=== PATIENT | male | born 1960 | race Caucasian/White ===

== ENCOUNTER 2020-03-01 15:02 | Emergency (ER) | payer MEDICAID ==
[~2020-03-01] VITALS: Ht 170.2 cm; Wt 98.0 kg
--- NOTE | 2020-03-01 16:15 | NUR ---
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
--- NOTE | 2020-03-01 16:27 | NUR ---
PT COMPLAING OF SOB AND BILATERAL LEG SWELLING. PT REPORTS INCREASED SWELLING SINCE RECENT DISCHARGE FROM [facility]. PT RESTING IN [facility], NO NEEDS AT THIS TIME. CARDIAC MONITORING AND CONT PULSE OX IN PLACE. NAD NOTED, WILL CONTINUE TO MONITOR.
--- NOTE | 2020-03-01 17:02 | NUR ---
PT RESTING ON GURNEY, NO NEEDS AT THIS TIME PER PT. 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 WILL CONTINUE TO MONITOR.
[2020-03-01 18:12] LABS: BASOPHILS % (AUTO) 1 % (0-1); EOSINOPHILS % (AUTO) 1 % (1-7); LYMPHOCYTES % (AUTO) 18 % (22-44); MEAN CORPUSCULAR HEMOGLOBIN 22.1 pg (27.5-34.5); MEAN CORPUSCULAR HGB CONC 30.1 g/dL (33.2-36.2); MONOCYTES % (AUTO) 8 % (2-9); NEUTROPHILS % (AUTO) 71 % (42-75); PLATELET COUNT 293 x10^3/uL (130-400); RED BLOOD COUNT 3.96 x10^6/uL (4.38-5.82); RED CELL DISTRIBUTION WIDTH 22.8 % (9.4-14.8)
[2020-03-01 18:48] LABS: MICROSCOPIC INDICATED
[2020-03-01 18:52] LABS: MD MORPH REVIEW ONLY
--- NOTE | 2020-03-01 18:52 | NUR ---
PT RESTING ON GURGIULIA, NO NEEDS AT THIS TIME. US AT BS.
[2020-03-01 18:55] LABS: ANISOCYTOSIS 1+; HYPOCHROMIA 1+; MICROCYTOSIS 1+; OVALOCYTES 1+; POLYCHROMASIA 1+
[2020-03-01 18:56] LABS: <PLATELET ESTIMATE> ADEQUATE; <PLT MORPHOLOGY> NORMAL PLT MORPH; TEAR DROPS 1+
[2020-03-01] MEDS ORDERED: FUROSEMIDE 40 MG/4 ML IV ONE (19:00)
[2020-03-01] MEDS ORDERED: FUROSEMIDE 40 MG/4 ML ONE (19:21)
[2020-03-01 20:22] VITALS: BP 159/98
== END 2020-03-01 20:24 | disposition home or self-care (01) ==
LOC: ED 20:10
DX: I11.0 Hypertensive heart disease with heart failure (principal); I50.812 Chronic right heart failure; I50.1 Left ventricular failure, unspecified; I49.3 Ventricular premature depolarization; R00.0 Tachycardia, unspecified; Z72.9 Problem related to lifestyle, unspecified
CPT/HCPCS: 36415; 71045; 81001; 83880; 85025; 93005; 93970; 96374; 99285; J1940

== ENCOUNTER 2020-03-31 12:11 | Emergency (ER) | payer MEDICAID ==
[~2020-03-31] VITALS: Ht 175.3 cm; Wt 95.4 kg
[2020-03-31 12:12] VITALS: BP 138/81
== END 2020-03-31 13:11 | disposition home or self-care (01) ==
LOC: ED 12:57
DX: I11.0 Hypertensive heart disease with heart failure (principal); I50.9 Heart failure, unspecified; Z76.0 Encounter for issue of repeat prescription; Z87.891 Personal history of nicotine dependence
CPT/HCPCS: 99281

== ENCOUNTER 2020-07-25 23:46 | Emergency (ER) | payer MEDICAID ==
[~2020-07-25] VITALS: Ht 172.7 cm; Wt 108.0 kg
[2020-07-25 23:54] VITALS: BP 145/81
== END 2020-07-26 01:29 | disposition home or self-care (01) ==
LOC: ED 07-26 01:26
DX: R21 Rash and other nonspecific skin eruption (principal); I11.0 Hypertensive heart disease with heart failure; I50.9 Heart failure, unspecified; Z72.9 Problem related to lifestyle, unspecified
CPT/HCPCS: 99283